=== PATIENT | female | born 1965 | race Caucasian/White ===

== ENCOUNTER 2023-11-24 08:52 | Emergency (ER) | payer BC, SELFPAY ==
[2023-11-24 08:57] VITALS: BP 129/75
--- NOTE | 2023-11-24 09:30 | ED.GENMED ---
History of Present Illness
General
Chief Complaint: Musculo-Skeletal Complaint
Source: patient
Time Seen by Provider: 11/24/23 09:16
Travel History
Have you had any contact with someone who has COVID-19?: No
Do you have any symptoms of coronavirus? Fever > 100 degrees, chills, cough, shortness of breath, sore throat, loss of taste or smell, muscle aches, or headache?: No
History of Present Illness
History of Present Illness:
58-year-old female with no significant past medical history presenting to the emergency department for evaluation after she was in her yard gardening and pulling the lead when she was bending over and the pick ax she was using ricocheted back into
her sternum and has had pain over the 10 days since. Due to the continued nature of the pain she was convinced by family to come to the ER for further evaluation. Pain is exacerbated with stretching of the chest or with deep inspiration. She
denies any shortness of breath, palpitations, diaphoresis, exertional dyspnea, orthopnea, peripheral edema. Patient personally has no cardiac disease but notes an extensive family history with father passing away from a sudden MO. She has
attempted intermittent anti-inflammatories with some relief.
Past History
Past History
ED Past Medical History: None
ED Past Surgical History:
Social History
Tobacco: Non-smoker
Alcohol: Occasional
Drug: None
Personal:
Living: with family
Review of Systems
Review of Systems
All Other Systems: ROS reviewed and negative except as documented in HPI and ROS
Phy Exam
Physical Exam
Physical Exam:
GENERAL: Alert , in no apparent distress
EYE: conjunctiva clear
NECK: Supple
ENT: o/p clr, mmm.
CARDIAC: Regular rate and rhythm
LUNGS: Clear breath sounds bilaterally, no acute respiratory distress, no wheezes/rales/rhonchi, mild tenderness over the inferior portion of the sternum
Abdomen: Soft, nontender, nondistended
NEUROLOGICAL: Alert and oriented
SKIN: Warm and dry, skin intact.
MUSCULOSKELETAL: well perfused.
PSYCH: Normal and appropriate interaction.
Scores
Heart Failure Risk
Heart Failure Risk Score: Not Applicable
Heart Score for Chest Pain Patients
STEMI patient?: Not applicable
Withdrawal Assessment of Alcohol
Withdrawal Assessment Completed?: Not applicable
Course
Orders/Labs/Results
Orders:
Orders
11/24/23 09:01
EKG [Electrocardiogram (*1)] Urgent
Reason for Study: Chest Pain
11/24/23 09:02
EKG- Treatment ONCE
11/24/23 09:27
CR Chest - 2 Views Urgent
Comment:
Reason For Exam: sternal pain
Vital Signs
Initial and Last Documented VS:
Initial Vital Signs
Temp Pulse Resp BP Pulse Ox
97.6 F 50 16 129/75 99
11/24/23 08:57 11/24/23 08:57 11/24/23 08:57 11/24/23 08:57 11/24/23 08:57
Last Documented Vital Signs
Temp Pulse Resp BP Pulse Ox
97.6 F 51 16 121/79 100
11/24/23 08:57 11/24/23 09:33 11/24/23 09:33 11/24/23 09:33 11/24/23 09:33
MDM/Problems Addressed
Differential Diagnosis Includes:
Sternal contusion, less concern for fracture, less concern for ACS
MDM/Problems Addressed:
Otherwise healthy 58-year-old female presenting to the emergency department for evaluation after she was accidentally hit in the chest by the handle of a pick ax 10 days ago while gardening. Has had pain since. Attempted NSAIDs with some relief.
Still having tenderness. Will obtain x-ray to rule out fracture. EKG done in triage shows sinus bradycardia which patient states is her normal. No evidence for ischemic changes. I did offer lab work however patient declines this and merely wants
a chest x-ray performed.
*Radiology
Radiology exam reviewed: preliminary read by ED provider (Unremarkable chest x-ray)
*Pulse Oximetry
Patient hypoxic: no
*EKG
Interpreted by ED Provider?: Yes
Comparison EKG: no comparison EKG present
Heart Rate: 45
Rate: bradycardiac
Rhythm: sinus and sinus arrhythmia
[place]: normal axis
Ischemia: no ischemia
*Critical Care Note
Total Time (30-74mins, 75-104mins- exclusive of procedures): Not Applicable
Patient Management
Escalation/DeEscalation of care consider admission/obs:
Patient's chest x-ray is under markable. I advise she follow-up closely with her primary care provider especially if symptoms persist given her strong family history of cardiac problems. Aware of return precautions emergency department. Otherwise
stable for discharge home.
ED Attending Note
-
Portions of this chart may have been created with voice recognition software.� Occasional wrong word or��sound alike� substitutions may have occurred due to the inherent limitations of voice recognition software.
Discharge Plan
Departure
Patient Disposition: Home (Routine Discharge)
Date of Disposition: 11/24/23
Time of Disposition: 10:28
Patient with high blood pressure during this ER visit?: No
Discharge Problem:
Chest wall contusion
Instructions: Contusion (DC)
Referrals:
Alondra Curran MD [Family Provider] -
Interventions
Interventions:
*Risk Screen - Suicide Last Done: 11/24/23 08:57
*General Assessment Last Done: 11/24/23 08:57
*Neglect/Abuse Screening Last Done: 11/24/23 08:57
ED- Fall Risk Assessment Last Done: 11/24/23 09:33
*ED COVID-19 Vaccine History Last Done: 11/24/23 09:33
*Nursing Disposition Last Done: 11/24/23 10:37
ED-Musculoskeletal Assessment Last Done: 11/24/23 09:33
Discharge Date and Time
Discharge Date/Time: 11/24/23 10:37
Print Language: ROMANIAN
[2023-11-24 09:31] VITALS: BMI 27.2
[2023-11-24 09:33] VITALS: BP 121/79
== END 2023-11-24 10:37 | disposition home or self-care (01) ==
LOC: EMR 08:52
PROVIDERS: EMERGENCY PHYSICIAN Student in an Organized Health Care Education/Training Program; FAMILY PHYSICIAN Family Medicine
DX: S20.219A Contusion of unspecified front wall of thorax, initial encounter (principal); W20.8XXA Other cause of strike by thrown, projected or falling object, initial encounter; Y93.H2 Activity, gardening and landscaping; Y92.007 Garden or yard of unspecified non-institutional (private) residence as the place of occurrence of the external cause
CPT/HCPCS: 99283; 71046; 93005

== ENCOUNTER → 2024-08-16 07:53 | Outpatient (REF) | payer BC, SELFPAY | LOC: WDC 07:53 | PROVIDERS: ATTENDING PHYSICIAN Obstetrics & Gynecology; FAMILY PHYSICIAN Family Medicine | DX: Z12.31 Encounter for screening mammogram for malignant neoplasm of breast (principal) | CPT/HCPCS: 77063; 77067 ==